=== PATIENT | female | born 1970 | race Caucasian/White ===

== ENCOUNTER → 2016-09-15 | Outpatient (REF) | payer OTHER | LOC: LAB 09:06 | PROVIDERS: ATTEND Nurse Practitioner Family | DX: N30.00 Acute cystitis without hematuria (principal) | CPT/HCPCS: 87077; 87088; 87186 ==

== ENCOUNTER → 2016-09-23 | Outpatient (REF) | payer OTHER ==
[2016-09-23 11:14] LABS: BASOPHILS % (AUTO) 1 % (0-2); EOSINOPHILS % (AUTO) 1 % (0-4); LYMPHOCYTES # (AUTO) 0.8 X10^3; MEAN CORPUSCULAR HEMOGLOBIN 29.1 PG (26.0-34.0); MEAN CORPUSCULAR HGB CONC 33.8 g/dL (31.0-37.0); MEAN CORPUSCULAR VOLUME 86 FL (80-100); MEAN PLATELET VOLUME 11.6 FL (6.0-9.5); MONOCYTES # (AUTO) 0.6 X10^3; MONOCYTES % (AUTO) 15 % (3-11); NEUTROPHILS # (AUTO) 2.5 X10^3; NEUTROPHILS % (AUTO) 64 % (51-67); PLATELET COUNT 218 10^3uL (150-450); WHITE BLOOD COUNT 3.85 10^3uL (4.0-11.0)
[2016-09-23 12:14] LABS: URINE CENTRIFUGED VOLUME 12 mL
[2016-09-23 12:41] LABS: ALBUMIN 4.4 g/dL (3.4-5.0); ANION GAP 15.2 MEQ/L (3-15); CALCULATED IONIZED CALCIUM 4.2 mg/dL (3.8-4.6); TOTAL PROTEIN 7.4 g/dL (6.4-8.5)
== END ==
LOC: LAB 10:15
PROVIDERS: ATTEND Nurse Practitioner Family
DX: N10 Acute pyelonephritis (principal)
CPT/HCPCS: 80053; 81015; 85025; 87088

== ENCOUNTER → 2016-09-23 | Outpatient (CLI) | payer OTHER | LOC: RAD 11:00 | PROVIDERS: ATTEND Nurse Practitioner Family | DX: M54.5 Low back pain (principal) | CPT/HCPCS: 74176 ==

== ENCOUNTER → 2016-10-03 | Outpatient (REF) | payer OTHER ==
[2016-10-03 18:29] LABS: BILIRUBIN,URINE Negative (Negative); CLARITY,URINE Clear; COLOR,URINE Yellow; GLUCOSE, URINE (UA) Negative (Negative); LEUKOCYTE ESTERASE, URINE Negative (Negative); UROBILINOGEN,URINE 0.2 mg/dL (0.2-1.0)
[2016-10-03 18:49] LABS: URINE CENTRIFUGED VOLUME 12 mL
== END ==
LOC: LAB 18:03
PROVIDERS: ATTEND Nurse Practitioner Family
DX: R31.29 Other microscopic hematuria (principal)
CPT/HCPCS: 81003; 81015

== ENCOUNTER → 2016-10-29 | Outpatient (CLI) | payer OTHER ==
[2016-10-29 13:06] LABS: BILIRUBIN,URINE Negative (Negative); CLARITY,URINE Clear; COLOR,URINE Yellow; GLUCOSE, URINE (UA) Negative (Negative); LEUKOCYTE ESTERASE ,URINE Negative (Negative); UROBILINOGEN,URINE 0.2 mg/dL (0.2-1.0)
[2016-10-29 13:21] LABS: URINE CENTRIFUGED VOLUME 12 mL
== END ==
LOC: LAB 12:13
PROVIDERS: ATTEND Family Medicine
DX: R31.29 Other microscopic hematuria (principal)
CPT/HCPCS: 81003; 81015

== ENCOUNTER → 2016-11-03 | Outpatient (CLI) | payer OTHER ==
[~2016-11-03] MED LIST: CLIN-78 PO; NAPR550T PO; ONDA4TAB8 PO; PROP20TA23 PO
== END ==
LOC: LAB 18:03
PROVIDERS: ATTEND Family Medicine
DX: R31.29 Other microscopic hematuria (principal)

== ENCOUNTER → 2016-12-04 | Outpatient (CLI) | payer OTHER ==
[~2016-12-04] MED LIST changes: +AZIT250T81 PO; +PRED20TA PO
[2016-12-04 18:21] VITALS: BP 106/73
--- NOTE | 2016-12-04 18:21 | Urgent Care T Sheet Gen (E) ---
Intake General Temperature (Fahrenheit): 98.7 Pulse: 65 Blood Pressure Systolic: 106 Blood Pressure Diastolic: 73 Respirations: 20 SPO2: 99 Description of Symptoms Patient presents with illness for over a week which is getting worse with time. Notes CRUZ/sinus pressure, R ear pain, PND, ST and cough. Cough has worsened over the past few days. No fever but has noticed chills. Been taking Theraflu and Excedrin Migraine. History of Present Illness Allergies: Coded Allergies: Penicillins (Unverified Allergy, Unknown, 08/19/15) Sulfa (Sulfonamide Antibiotics) (Unverified Allergy, Unknown, 08/19/15) acetaminophen (Verified Allergy, Unknown, HIVES, 08/19/15) hydrocodone bitartrate (Verified Allergy, Unknown, HIVES, 08/19/15) oxycodone (Verified Allergy, Unknown, 08/19/15) Home Meds Active Scripts Ondansetron (Zofran ODT)4 Mg Tab.rapdis4 Mg PO Q6H PRN NAUSEA #12 Ref 0 Prov:BRIDGETTE SAENZ MD 08/21/15 Respiratory Constitutional Symptoms: ChillsNo Fever, Malaise EENTM: Ear pain Nose Congestion Throat pain Respiratory: Cough Cardiovascular: No symptoms reported Gastrointestinal/Abdominal: No symptoms reported All Other Systems Reviewed Remaining Systems: All other systems reviewed with negative findings Past Gbpbgxn-Kithbm-Tewyqo Hx Surgeries/Hospitalizations Hospitalization/Surgery Hx: HYSTERECTOMY Respiratory Respiratory History: None Cardiovascular Cardiovascular History: None Neuro/Muscular Neuro/Muscular History: Headache, Migraine Reproductive System Sexually Transmitted Diseases: No Gastrointestinal GI/Endocrine History: None Diabetes Diabetes: No HEENT Impaired Vision: None Hearing Impaired: None Psychosocial Behavior Disorders: None Physical Exam Physical Exam General Appearance: WD/WN No apparent distress Eyes, Ears, Nose, Throat Ex: TM abnormal (R) (red) Pharyngeal erythema ( cobblestone appearance, PND, red streaks) Other (red, swollen R nasal turbinate with thick drainage) Neck Exam: SuppleNo Lymphadenopathy Respiratory Exam: Lungs clear Normal breath sounds Cardiovascular Exam: Regular rate, rhythm Departure Urgent Care Impression Impression: Primary Impression: Otitis media Qualified Code: H66.001 - Acute suppurative otitis media without spontaneous rupture of ear drum, right ear Additional Impression: Sinusitis Qualified Code: J01.00 - Acute maxillary sinusitis, unspecified Departure Disposition: 01 HOME OR SELF-CARE Condition: Stable Referrals: ARLET SANTA MD (PCP) Additional Instructions: I have started the patient on Zpak and Prednisone. Prednisone should help with nasal congestion and throat irritation. May continue with Excedrin as needed for headache. DC Theraflu Return as needed Patient understands DC instructions. All questions were answered. Scripts Prednisone 20 Mg [id number] Mg PO DAILY #6 TAB Prov:JTET OSORIO 12/04/16 Azithromycin (Zithromax Z-Soto)6 Tab/Pkt [id number] Mg PO SEE INSTRUCTIONS #6 TAB Ref 0 Day One: Take 2 tablets by mouth Days Two-Five: Take 1 tablet by mouth Prov:JETT OSORIO 12/04/16 End of report . JETT OSORIO Dec 04, 2016 18:21
== END ==
LOC: MHUC 18:05
PROVIDERS: ATTEND Physician Assistant
DX: H66.001 Acute suppurative otitis media without spontaneous rupture of ear drum, right ear (principal); J01.00 Acute maxillary sinusitis, unspecified
CPT/HCPCS: 99213